=== PATIENT | male | born 1955 | race African-American/Black ===

== ENCOUNTER 2018-08-13 15:09 | Inpatient (IN) | payer OTHER ==
[2018-08-13 17:36] LABS: ADD MAN DIFF? NO
[2018-08-13 17:43] LABS: BASOPHILS % 0.5 % (0.0-2.0); EOSINOPHILS # 0.1 10^3/ul (0.0-0.5); EOSINOPHILS % 0.9 % (0.0-7.0); HEMATOCRIT 25.6 % (42.0-52.0); HEMOGLOBIN 7.8 g/dl (14.0-18.0); LYMPHOCYTES # 1.3 10^3/ul (0.8-2.9); LYMPHOCYTES % 15.8 % (15.0-51.0); MEAN CORPUSCULAR HEMOGLOBIN 25.2 pg (29.0-33.0); MEAN CORPUSCULAR HGB CONC 30.5 g/dl (32.0-37.0); MEAN CORPUSCULAR VOLUME 82.6 fl (82.0-101.0); MEAN PLATELET VOLUME 9.5 fl (7.4-10.4); MONOCYTE # 0.5 10^3/ul (0.3-0.9); MONOCYTES % 6.6 % (0.0-11.0); NEUTROPHIL # 6.1 10^3/ul (1.6-7.5); NEUTROPHILS % 75.8 % (39.0-77.0); PLATELET COUNT 384 10^3/UL (140-415); RED CELL DISTRIBUTION WIDTH 14.5 % (11.5-14.5)
[2018-08-13 18:00] LABS: ALANINE AMINOTRANSFERASE 9 IU/L (13-69); ALBUMIN 3.1 g/dl (3.3-4.9); ALBUMIN/GLOBULIN RATIO 0.81; ALKALINE PHOSPHATASE 109 IU/L (42-121); ANION GAP 5 (5-13); ASPARTATE AMINO TRANSFERASE 18 IU/L (15-46); BILIRUBIN,INDIRECT 0.1 mg/dl (0-1.1); BILIRUBIN,TOTAL 0.1 mg/dl (0.2-1.3); BLOOD UREA NITROGEN 17 mg/dl (7-20); CALCIUM 8.8 mg/dl (8.4-10.2); CARBON DIOXIDE 28 mmol/L (21-31); CHLORIDE 106 mmol/L (97-110); CREATININE 0.69 mg/dl (0.61-1.24); Estimated GFR > 60 mL/min (>60); GLUCOSE 246 mg/dl (70-220); POTASSIUM 4.1 mmol/L (3.5-5.1); SODIUM 139 mmol/L (135-144); TOTAL PROTEIN 6.9 g/dl (6.1-8.1)
[2018-08-13] MEDS: HYDROCODONE/APAP (10/325) TAB PO (18:30)
[2018-08-13] MEDS: PIPER-TAZO 3.375 GM IV (PMX) 100 ML IVPB (19:45)
[2018-08-13] MEDS ORDERED: ACETAMINOPHEN 325 MG TAB PO ×2 (20:00→22:00)
[2018-08-13] MEDS ORDERED: ONDANSETRON 4 MG INJ IV (20:00)
[2018-08-13] MEDS: VANCOMYCIN 1 GM (PMX) 250 ML IVPB (20:31)
[2018-08-13] MEDS ORDERED: ONDANSETRON 4 MG TAB PO (22:00)
[2018-08-13] MEDS ORDERED: DOCUSATE SODIUM 100 MG CAP PO (22:00)
[2018-08-13] MEDS ORDERED: VANCOMYCIN IV PER PHARMACY XX (22:00)
[2018-08-13] MEDS ORDERED: NACL 0.9% 3 ML SYG IV (22:00)
[2018-08-13] MEDS ORDERED: DEXTROSE 50% 50 ML SYRINGE IV ×2 (22:30)
[2018-08-13] MEDS ORDERED: GLUCAGON 1 MG INJ IM (22:30)
[2018-08-13] MEDS ORDERED: GLUCOSE GEL 15 GRAM TUBE BUCCAL (22:30)
[2018-08-13] MEDS ORDERED: GLUCOSE GEL 15 GRAM TUBE PO ×2 (22:30)
[2018-08-13] MEDS: FAMOTIDINE 20 MG TAB PO (22:59)
[2018-08-13] MEDS: SOD CHLORIDE 0.9% 1,000 ML IV (22:59)
[2018-08-13 23:29] LABS: CREATINE KINASE 102 IU/L (23-200)
[2018-08-13 23:40] LABS: CK INDEX 1.5; TROPONIN-I 0.016 ng/ml (0.000-0.120)
[2018-08-14] MEDS: VANCOMYCIN 500 MG (PMX) 100 ML IVPB (00:24)
[2018-08-14] MEDS: PIPER-TAZO 3.375 GM IV (PMX) 100 ML IVPB (02:24)
[2018-08-14 05:44] LABS: ADD MAN DIFF? NO
[2018-08-14 06:32] LABS: CREATINE KINASE 70 IU/L (23-200)
[2018-08-14 06:37] LABS: ADD UMIC YES; UR ASCORBIC ACID 40 mg/dL (NEGATIVE); UR BILIRUBIN (Dip) NEGATIVE (NEGATIVE); UR BLOOD (Dip) NEGATIVE (NEGATIVE); UR CLARITY CLOUDY (CLEAR); UR COLOR YELLOW (YELLOW); UR GLUCOSE (Dip) 3+ mg/dL (NEGATIVE); UR KETONES (Dip) NEGATIVE (NEGATIVE); UR LEUKOCYTE ESTERASE (Dip) NEGATIVE Leu/ul (NEGATIVE); UR NITRITE (Dip) NEGATIVE (NEGATIVE); UR RBC 6 /HPF (0-5); UR SPECIFIC GRAVITY (Dip) 1.026 (1.003-1.030); UR SQUAMOUS EPITHELIAL CELL FEW /HPF (FEW); UR TOTAL PROTEIN (Dip) 2+ mg/dl (NEGATIVE); UR UROBILINOGEN (Dip) NEGATIVE (NEGATIVE); UR WBC 4 /HPF (0-5)
[2018-08-14 06:46] LABS: CK INDEX 1.9; CK-MB 1.34 ng/ml (0.0-2.4)
[2018-08-14 06:47] LABS: ABNORMAL IP MESSAGE 1; BASOPHILS % 0.3 % (0.0-2.0); EOSINOPHILS # 0.1 10^3/ul (0.0-0.5); EOSINOPHILS % 1.5 % (0.0-7.0); HEMATOCRIT 22.6 % (42.0-52.0); LYMPHOCYTES # 1.3 10^3/ul (0.8-2.9); LYMPHOCYTES % 22.6 % (15.0-51.0); MEAN CORPUSCULAR HEMOGLOBIN 24.5 pg (29.0-33.0); MEAN CORPUSCULAR HGB CONC 29.2 g/dl (32.0-37.0); MONOCYTE # 0.6 10^3/ul (0.3-0.9); MONOCYTES % 9.3 % (0.0-11.0); NEUTROPHIL # 3.9 10^3/ul (1.6-7.5); PLATELET COUNT 328 10^3/UL (140-415); POSITIVE DIFF @See below; RED BLOOD COUNT 2.69 10^6/ul (4.70-6.10); RED CELL DISTRIBUTION WIDTH 14.5 % (11.5-14.5)
[2018-08-14 06:47] LABS: WHITE BLOOD COUNT 5.9 10^3/ul (4.8-10.8)
[2018-08-14 06:53] LABS: ALANINE AMINOTRANSFERASE 12 IU/L (13-69); ALBUMIN 2.5 g/dl (3.3-4.9); ALBUMIN/GLOBULIN RATIO 0.78; ALKALINE PHOSPHATASE 81 IU/L (42-121); ANION GAP 5 (5-13); ASPARTATE AMINO TRANSFERASE 11 IU/L (15-46); BILIRUBIN,INDIRECT 0.1 mg/dl (0-1.1); BILIRUBIN,TOTAL 0.1 mg/dl (0.2-1.3); BLOOD UREA NITROGEN 16 mg/dl (7-20); CALCIUM 8.4 mg/dl (8.4-10.2); CARBON DIOXIDE 27 mmol/L (21-31); CHLORIDE 108 mmol/L (97-110); Estimated GFR > 60 mL/min (>60); GLUCOSE 255 mg/dl (70-220); HEMOGLOBIN 6.6 g/dl (14.0-18.0); POTASSIUM 3.8 mmol/L (3.5-5.1); SODIUM 140 mmol/L (135-144); TOTAL PROTEIN 5.7 g/dl (6.1-8.1)
[2018-08-14 06:55] LABS: FREE THYROXINE INDEX (Calc) 2.57 ug/ml (0.65-3.89); T3 UPTAKE 49.5 % (23.5-40.5); T4 (THYROXINE) 5.2 ug/dl (5.5-11.0)
[2018-08-14 07:18] LABS: HEMOGLOBIN A1C 7.8 % (0-5.9)
[2018-08-14] MEDS: VANCOMYCIN 1 GM 250 ML IVPB (08:00)
[2018-08-14] MEDS: SOD CHLORIDE 0.9% 250 ML IV* (08:34)
[2018-08-14] MEDS: traMADol 50 MG TAB GTB ×2 (09:29→17:07)
[2018-08-14] MEDS: FAMOTIDINE 20 MG TAB PO ×2 (09:29→20:29)
[2018-08-14] MEDS: ENOXAPARIN 40 MG/0.4 ML SYG SC (09:31)
[2018-08-14] MEDS: SOD CHLORIDE 0.9% 1,000 ML IV ×2 (11:00→22:40)
[2018-08-14] MEDS: LIDOCAINE 1% (MPF) 5 ML VIAL SC (11:40)
[2018-08-14] MEDS: hydrALAzine 20 MG INJ IV (16:40)
[2018-08-14] MEDS: METOPROLOL 50 MG TAB PO ×2 (16:40→22:39)
[2018-08-14] MEDS: HYDROCODONE/APAP (5/325) TAB PO (19:00)
[2018-08-14] MEDS: FUROSEMIDE 20 MG INJ IV (19:00)
[2018-08-14] MEDS: INSULIN GLARGINE [LANTus] (100 UNITS/ML) SYG SC (20:00)
[2018-08-14] MEDS: ACETAMINOPHEN 500 MG TAB PO (20:29)
[2018-08-14] MEDS: DIPHENHYDRAMINE 50 MG INJ IV (20:31)
[2018-08-14 21:39] LABS: IMMEDIATE SPIN CROSSMATCH 1 4
[2018-08-15] MEDS: ACCU-CHEK XX (01:24)
[2018-08-15] MEDS: hydrALAzine 20 MG INJ IV ×2 (02:05→16:08)
[2018-08-15] MEDS: VANCOMYCIN 1 GM 250 ML IVPB ×2 (02:05→14:20)
[2018-08-15 06:13] LABS: ADD MAN DIFF? NO
[2018-08-15 06:30] LABS: WHITE BLOOD COUNT 6.6 10^3/ul (4.8-10.8)
[2018-08-15 06:30] LABS: BASOPHIL # 0.1 10^3/ul (0.0-0.1); BASOPHILS % 0.8 % (0.0-2.0); EOSINOPHILS # 0.2 10^3/ul (0.0-0.5); EOSINOPHILS % 2.9 % (0.0-7.0); HEMATOCRIT 27.8 % (42.0-52.0); HEMOGLOBIN 8.5 g/dl (14.0-18.0); LYMPHOCYTES # 1.6 10^3/ul (0.8-2.9); LYMPHOCYTES % 23.7 % (15.0-51.0); MEAN CORPUSCULAR HEMOGLOBIN 25.6 pg (29.0-33.0); MEAN CORPUSCULAR HGB CONC 30.6 g/dl (32.0-37.0); MEAN CORPUSCULAR VOLUME 83.7 fl (82.0-101.0); MEAN PLATELET VOLUME 10.2 fl (7.4-10.4); MONOCYTE # 0.5 10^3/ul (0.3-0.9); MONOCYTES % 7.8 % (0.0-11.0); NEUTROPHIL # 4.2 10^3/ul (1.6-7.5); NEUTROPHILS % 64.5 % (39.0-77.0); PLATELET COUNT 335 10^3/UL (140-415); RED BLOOD COUNT 3.32 10^6/ul (4.70-6.10); RED CELL DISTRIBUTION WIDTH 14.5 % (11.5-14.5)
[2018-08-15] MEDS: INSULIN ASPART [NOVOLOG] 3 ML PEN SC ×3 (07:57→17:43)
[2018-08-15] MEDS: FAMOTIDINE 20 MG TAB PO (08:47)
[2018-08-15] MEDS: LISINOPRIL 20 MG TAB PO (08:47)
[2018-08-15] MEDS: METOPROLOL 50 MG TAB PO (08:47)
[2018-08-15] MEDS: ENOXAPARIN 40 MG/0.4 ML SYG SC (08:50)
[2018-08-15] MEDS: SOD CHLORIDE 0.9% 1,000 ML IV (11:59)
[2018-08-15] MEDS: FUROSEMIDE 20 MG INJ IV (17:40)
== END 2018-08-15 19:16 | DRG 637 ==
LOC: PP2 08-14 05:00 → E/R 15:09 → 2NE 19:43
PROVIDERS: Pediatrics Neonatal-Perinatal Medicine
PROC: 02HV33Z Insertion of Infusion Device into Superior Vena Cava, Percutaneous Approach (ICD-10-PCS; principal; 2018-08-14)
PROC: B548ZZA Ultrasonography of Superior Vena Cava, Guidance (ICD-10-PCS; 2018-08-14)
PROC: 30233N1 Transfusion of Nonautologous Red Blood Cells into Peripheral Vein, Percutaneous Approach (ICD-10-PCS; 2018-08-14)
DX: E11.621 Type 2 diabetes mellitus with foot ulcer (principal); L89.313 Pressure ulcer of right buttock, stage 3; L03.116 Cellulitis of left lower limb; L03.115 Cellulitis of right lower limb; E11.51 Type 2 diabetes mellitus with diabetic peripheral angiopathy without gangrene; E11.65 Type 2 diabetes mellitus with hyperglycemia; L89.610 Pressure ulcer of right heel, unstageable; L89.620 Pressure ulcer of left heel, unstageable; I10 Essential (primary) hypertension; D64.9 Anemia, unspecified; I73.9 Peripheral vascular disease, unspecified; L97.529 Non-pressure chronic ulcer of other part of left foot with unspecified severity; L97.519 Non-pressure chronic ulcer of other part of right foot with unspecified severity; F17.210 Nicotine dependence, cigarettes, uncomplicated; Z79.4 Long term (current) use of insulin; Z59.0 Homelessness; Z91.14 Patient's other noncompliance with medication regimen
CPT/HCPCS: 36415; 36430; 36569; 71045; 76937; 80053; 81001; 82550; 82553; 82962; 83036; 84436; 84479; 84484; 85025; 86850; 86900; 86901; 86920; 87040; 99285-25

== ENCOUNTER 2018-11-08 19:03 | Inpatient (IN) | payer OTHER ==
[2018-11-08] MEDS: SODIUM CHLORIDE 0.9% 1L BAG IV* (20:58)
[2018-11-08] MEDS: HYDROCODONE/APAP (10/325) TAB PO (21:00)
[2018-11-08 21:23] LABS: ADD MAN DIFF? NO
[2018-11-08] MEDS: PIPER-TAZO 3.375 GM IV (PMX) 100 ML IVPB (21:23)
[2018-11-08 21:24] LABS: BASOPHIL # 0.1 10^3/ul (0.0-0.1); EOSINOPHILS # 0.1 10^3/ul (0.0-0.5); EOSINOPHILS % 1.4 % (0.0-7.0); HEMATOCRIT 27.5 % (42.0-52.0); HEMOGLOBIN 8.4 g/dl (14.0-18.0); LYMPHOCYTES # 1.5 10^3/ul (0.8-2.9); LYMPHOCYTES % 21.7 % (15.0-51.0); MEAN CORPUSCULAR HEMOGLOBIN 26.3 pg (29.0-33.0); MEAN CORPUSCULAR HGB CONC 30.5 g/dl (32.0-37.0); MEAN CORPUSCULAR VOLUME 86.2 fl (82.0-101.0); MEAN PLATELET VOLUME 9.8 fl (7.4-10.4); MONOCYTE # 0.4 10^3/ul (0.3-0.9); MONOCYTES % 5.8 % (0.0-11.0); NEUTROPHILS % 69.8 % (39.0-77.0); PLATELET COUNT 419 10^3/UL (140-415); RED BLOOD COUNT 3.19 10^6/ul (4.70-6.10); RED CELL DISTRIBUTION WIDTH 14.8 % (11.5-14.5)
[2018-11-08 21:24] LABS: WHITE BLOOD COUNT 7.1 10^3/ul (4.8-10.8)
[2018-11-08 21:45] LABS: ALANINE AMINOTRANSFERASE 14 IU/L (13-69); ALBUMIN 3.4 g/dl (3.3-4.9); ALKALINE PHOSPHATASE 112 IU/L (42-121); ANION GAP 6 (5-13); ASPARTATE AMINO TRANSFERASE 15 IU/L (15-46); BILIRUBIN,INDIRECT 0.4 mg/dl (0-1.1); BILIRUBIN,TOTAL 0.4 mg/dl (0.2-1.3); BLOOD UREA NITROGEN 23 mg/dl (7-20); CALCIUM 8.9 mg/dl (8.4-10.2); CARBON DIOXIDE 28 mmol/L (21-31); CHLORIDE 105 mmol/L (97-110); CREATININE 1.09 mg/dl (0.61-1.24); Estimated GFR > 60 mL/min (>60); GLUCOSE 241 mg/dl (70-220); POTASSIUM 4.3 mmol/L (3.5-5.1); PROTIME 16.3 Sec (11.9-14.9); PT RATIO 1.3; SODIUM 139 mmol/L (135-144); TOTAL PROTEIN 6.8 g/dl (6.1-8.1)
[2018-11-08 21:46] LABS: PARTIAL THROMBOPLASTIN TIME 31.7 Sec (23.0-35.0)
[2018-11-08] MEDS: VANCOMYCIN 1 GM (PMX) 250 ML IVPB (22:24)
[2018-11-08] MEDS ORDERED: ACETAMINOPHEN 325 MG TAB PO (23:00)
[2018-11-08] MEDS ORDERED: ONDANSETRON 4 MG INJ IV (23:00)
[2018-11-09] MEDS ORDERED: ACETAMINOPHEN 325 MG TAB PO (00:30)
[2018-11-09] MEDS ORDERED: ONDANSETRON 4 MG INJ IV (00:30)
[2018-11-09] MEDS ORDERED: NACL 0.9% 3 ML SYG IV (00:30)
[2018-11-09] MEDS ORDERED: COLLAGENASE 5 GM (UD JAR) TOP ×2 (00:51→06:30)
[2018-11-09] MEDS: morphine 2 MG INJ IV (01:25)
[2018-11-09] MEDS ORDERED: GLUCOSE GEL 15 GRAM TUBE PO ×2 (01:30)
[2018-11-09] MEDS ORDERED: GLUCOSE GEL 15 GRAM TUBE BUCCAL (01:30)
[2018-11-09] MEDS ORDERED: GLUCAGON 1 MG INJ IM (01:30)
[2018-11-09] MEDS ORDERED: DEXTROSE 50% 50 ML SYRINGE IV ×2 (01:30)
[2018-11-09 01:36] LABS: LACTIC ACID 1.1 mmol/L (0.5-2.0)
[2018-11-09] MEDS: ACCU-CHEK XX (02:00)
[2018-11-09] MEDS: hydrALAzine 20 MG INJ IV (02:38)
[2018-11-09] MEDS ORDERED: PENDING SANTYL ORDER FOR WOUND CARE XX (06:00)
[2018-11-09] MEDS: HYDROCODONE/APAP (10/325) TAB PO ×4 (06:13→23:52)
[2018-11-09] MEDS ORDERED: VANCOMYCIN IV PER PHARMACY XX (08:00)
[2018-11-09] MEDS: COLLAGENASE 5 GM (UD JAR) TOP (08:22)
[2018-11-09] MEDS: LISINOPRIL 20 MG TAB PO ×2 (08:23→12:44)
[2018-11-09] MEDS: METOPROLOL 50 MG TAB PO ×2 (08:23→20:11)
[2018-11-09] MEDS: INSULIN ASPART [NOVOLOG] 3 ML PEN SC ×5 (08:24→20:06)
[2018-11-09] MEDS: FAMOTIDINE 20 MG TAB PO ×2 (08:24→20:05)
[2018-11-09] MEDS: VANCOMYCIN 750 MG (PMX) 250 ML IVPB ×2 (08:24→20:05)
[2018-11-09 11:05] LABS: ADD MAN DIFF? NO
[2018-11-09 11:10] LABS: WHITE BLOOD COUNT 5.2 10^3/ul (4.8-10.8)
[2018-11-09 11:10] LABS: BASOPHIL # 0.1 10^3/ul (0.0-0.1); EOSINOPHILS # 0.1 10^3/ul (0.0-0.5); EOSINOPHILS % 2.3 % (0.0-7.0); HEMATOCRIT 25.2 % (42.0-52.0); HEMOGLOBIN 7.6 g/dl (14.0-18.0); LYMPHOCYTES # 1.1 10^3/ul (0.8-2.9); LYMPHOCYTES % 21.5 % (15.0-51.0); MEAN CORPUSCULAR HGB CONC 30.2 g/dl (32.0-37.0); MEAN CORPUSCULAR VOLUME 86.3 fl (82.0-101.0); MEAN PLATELET VOLUME 10.7 fl (7.4-10.4); MONOCYTE # 0.3 10^3/ul (0.3-0.9); MONOCYTES % 6.4 % (0.0-11.0); NEUTROPHIL # 3.5 10^3/ul (1.6-7.5); NEUTROPHILS % 68.6 % (39.0-77.0); PLATELET COUNT 337 10^3/UL (140-415); RED BLOOD COUNT 2.92 10^6/ul (4.70-6.10); RED CELL DISTRIBUTION WIDTH 15.1 % (11.5-14.5)
[2018-11-09] MEDS: PIPER-TAZO 3.375 GM IV (PMX) 100 ML IVPB ×4 (11:15→23:49)
[2018-11-09] MEDS: HEPARIN 5,000 UNIT/1 ML VIAL SC ×2 (11:16→20:14)
[2018-11-09 11:18] LABS: HEMOGLOBIN A1C 7.1 % (0-5.9)
[2018-11-09 11:31] LABS: ALANINE AMINOTRANSFERASE 12 IU/L (13-69); ALBUMIN 2.7 g/dl (3.3-4.9); ALBUMIN/GLOBULIN RATIO 0.81; ALKALINE PHOSPHATASE 103 IU/L (42-121); ANION GAP 4 (5-13); ASPARTATE AMINO TRANSFERASE 13 IU/L (15-46); BILIRUBIN,INDIRECT 0.3 mg/dl (0-1.1); BILIRUBIN,TOTAL 0.3 mg/dl (0.2-1.3); BLOOD UREA NITROGEN 23 mg/dl (7-20); CALCIUM 8.2 mg/dl (8.4-10.2); CARBON DIOXIDE 26 mmol/L (21-31); CHLORIDE 110 mmol/L (97-110); CHOL/HDL RATIO 3.1 RATIO; CHOLESTEROL 109 mg/dl (100-200); CREATININE 0.96 mg/dl (0.61-1.24); Estimated GFR > 60 mL/min (>60); GLUCOSE 216 mg/dl (70-220); HDL CHOLESTEROL 35 mg/dl (30-78); LDL CHOLESTEROL,CALCULATED 65 mg/dl; MAGNESIUM 1.8 mg/dl (1.7-2.5); POTASSIUM 4.7 mmol/L (3.5-5.1); SODIUM 140 mmol/L (135-144); TRIGLYCERIDES 47 mg/dl (0-149)
[2018-11-09 11:43] LABS: IRON 29 ug/dl (35-150)
[2018-11-09 11:47] LABS: C-REACTIVE PROTEIN 1.1 mg/dl (0.0-0.9)
[2018-11-09 11:52] LABS: % IRON SATURATION 13 % SAT (22-52); TOTAL IRON BINDING CAPACITY 221 ug/dl (241-421)
[2018-11-09 12:25] LABS: ERYTHROCYTE SEDIMENTATION RATE 68 mm/Hr (0-20)
[2018-11-09] MEDS: DAKINS 0.0125%(1/40) 473 ML SOLUTION TP (14:00)
[2018-11-09] MEDS: SOD FERRIC GLUC COMPLX 125 MG in SOD CHLORIDE 0.9% 100 ML IVPB (14:15)
[2018-11-09] MEDS: INSULIN GLARGINE [LANTus] (100 UNITS/ML) SYG SC (15:00)
[2018-11-09 15:39] LABS: PROCALCITONIN 0.45 ng/mL (0.00-0.10)
[2018-11-10] MEDS: ACCU-CHEK XX (02:00)
[2018-11-10] MEDS: hydrALAzine 20 MG INJ IV (04:29)
[2018-11-10] MEDS: HYDROCODONE/APAP (10/325) TAB PO ×3 (06:28→17:33)
[2018-11-10] MEDS: PIPER-TAZO 3.375 GM IV (PMX) 100 ML IVPB ×4 (06:29→17:40)
[2018-11-10 07:37] LABS: ADD MAN DIFF? NO
[2018-11-10 07:40] LABS: EOSINOPHILS # 0.2 10^3/ul (0.0-0.5); HEMOGLOBIN 7.9 g/dl (14.0-18.0); LYMPHOCYTES # 0.9 10^3/ul (0.8-2.9); LYMPHOCYTES % 21.2 % (15.0-51.0); MEAN CORPUSCULAR HEMOGLOBIN 25.9 pg (29.0-33.0); MEAN CORPUSCULAR HGB CONC 30.4 g/dl (32.0-37.0); MEAN CORPUSCULAR VOLUME 85.2 fl (82.0-101.0); MEAN PLATELET VOLUME 9.8 fl (7.4-10.4); MONOCYTE # 0.3 10^3/ul (0.3-0.9); MONOCYTES % 7.5 % (0.0-11.0); NEUTROPHIL # 2.7 10^3/ul (1.6-7.5); NEUTROPHILS % 66.1 % (39.0-77.0); PLATELET COUNT 339 10^3/UL (140-415); RED BLOOD COUNT 3.05 10^6/ul (4.70-6.10); RED CELL DISTRIBUTION WIDTH 15.1 % (11.5-14.5)
[2018-11-10 08:00] LABS: ALANINE AMINOTRANSFERASE 12 IU/L (13-69); ALBUMIN 2.8 g/dl (3.3-4.9); ALKALINE PHOSPHATASE 91 IU/L (42-121); ANION GAP 5 (5-13); ASPARTATE AMINO TRANSFERASE 14 IU/L (15-46); BILIRUBIN,INDIRECT 0.4 mg/dl (0-1.1); BILIRUBIN,TOTAL 0.4 mg/dl (0.2-1.3); BLOOD UREA NITROGEN 22 mg/dl (7-20); CALCIUM 8.6 mg/dl (8.4-10.2); CARBON DIOXIDE 24 mmol/L (21-31); CHLORIDE 109 mmol/L (97-110); CREATININE 0.97 mg/dl (0.61-1.24); Estimated GFR > 60 mL/min (>60); GLUCOSE 94 mg/dl (70-220); POTASSIUM 4.1 mmol/L (3.5-5.1); SODIUM 138 mmol/L (135-144); TOTAL PROTEIN 5.9 g/dl (6.1-8.1)
[2018-11-10] MEDS: INSULIN ASPART [NOVOLOG] 3 ML PEN SC ×7 (08:00→21:00)
[2018-11-10] MEDS: morphine 2 MG INJ IV (08:04)
[2018-11-10] MEDS: METOPROLOL 50 MG TAB PO ×2 (08:06→22:22)
[2018-11-10] MEDS: FAMOTIDINE 20 MG TAB PO ×2 (08:06→22:23)
[2018-11-10 08:07] LABS: VANCOMYCIN,TROUGH 17.2 ug/ml (10.0-20.0)
[2018-11-10] MEDS: LISINOPRIL 20 MG TAB PO (08:07)
[2018-11-10] MEDS: HEPARIN 5,000 UNIT/1 ML VIAL SC ×2 (08:10→21:00)
[2018-11-10] MEDS: INSULIN GLARGINE [LANTus] (100 UNITS/ML) SYG SC (08:10)
[2018-11-10] MEDS: COLLAGENASE 5 GM (UD JAR) TOP (08:13)
[2018-11-10] MEDS: DAKINS 0.0125%(1/40) 473 ML SOLUTION TP (08:14)
[2018-11-10] MEDS: VANCOMYCIN 750 MG (PMX) 250 ML IVPB (08:56)
[2018-11-10] MEDS: SOD FERRIC GLUC COMPLX 125 MG in SOD CHLORIDE 0.9% 100 ML IVPB (12:17)
[2018-11-10] MEDS: metFORMIN 500 MG TAB PO (17:33)
[2018-11-10] MEDS: VANCOMYCIN 500 MG (PMX) 100 ML IVPB (22:19)
[2018-11-10] MEDS: GABAPENTIN 100 MG CAP PO (22:22)
[2018-11-11] MEDS: PIPER-TAZO 3.375 GM IV (PMX) 100 ML IVPB ×4 (00:49→17:38)
[2018-11-11] MEDS: ACCU-CHEK XX (02:00)
[2018-11-11] MEDS: HYDROCODONE/APAP (10/325) TAB PO ×4 (06:00→17:38)
[2018-11-11] MEDS: INSULIN ASPART [NOVOLOG] 3 ML PEN SC ×4 (08:00→21:00)
[2018-11-11] MEDS: INSULIN GLARGINE [LANTus] (100 UNITS/ML) SYG SC (08:00)
[2018-11-11] MEDS: metFORMIN 500 MG TAB PO ×3 (08:46→21:27)
[2018-11-11] MEDS: HEPARIN 5,000 UNIT/1 ML VIAL SC ×3 (08:47→21:30)
[2018-11-11] MEDS: LISINOPRIL 20 MG TAB PO (08:47)
[2018-11-11] MEDS: COLLAGENASE 5 GM (UD JAR) TOP (08:48)
[2018-11-11] MEDS: DAKINS 0.0125%(1/40) 473 ML SOLUTION TP (08:48)
[2018-11-11] MEDS: GABAPENTIN 100 MG CAP PO ×3 (08:48→21:27)
[2018-11-11] MEDS: FAMOTIDINE 20 MG TAB PO ×2 (08:48→21:27)
[2018-11-11] MEDS: METOPROLOL 50 MG TAB PO (08:48)
[2018-11-11] MEDS: VANCOMYCIN 500 MG (PMX) 100 ML IVPB ×2 (10:01→21:26)
[2018-11-11 10:20] LABS: ADD MAN DIFF? NO
[2018-11-11 10:27] LABS: BASOPHILS % 0.6 % (0.0-2.0); EOSINOPHILS # 0.1 10^3/ul (0.0-0.5); EOSINOPHILS % 2.2 % (0.0-7.0); HEMATOCRIT 28.3 % (42.0-52.0); HEMOGLOBIN 8.8 g/dl (14.0-18.0); LYMPHOCYTES % 19.2 % (15.0-51.0); MEAN CORPUSCULAR HEMOGLOBIN 26.6 pg (29.0-33.0); MEAN CORPUSCULAR HGB CONC 31.1 g/dl (32.0-37.0); MEAN CORPUSCULAR VOLUME 85.5 fl (82.0-101.0); MEAN PLATELET VOLUME 11.9 fl (7.4-10.4); MONOCYTE # 0.3 10^3/ul (0.3-0.9); MONOCYTES % 6.2 % (0.0-11.0); NEUTROPHIL # 3.6 10^3/ul (1.6-7.5); NEUTROPHILS % 71.4 % (39.0-77.0); PLATELET COUNT 354 10^3/UL (140-415); RED BLOOD COUNT 3.31 10^6/ul (4.70-6.10); RED CELL DISTRIBUTION WIDTH 15.5 % (11.5-14.5)
[2018-11-11] MEDS: hydrALAzine 20 MG INJ IV (10:33)
[2018-11-11] MEDS: METOPROLOL 25 MG TAB PO ×2 (10:45→21:29)
[2018-11-11 10:54] LABS: ALBUMIN 3.8 g/dl (3.3-4.9); ALKALINE PHOSPHATASE 94 IU/L (42-121); ANION GAP 4 (5-13); ASPARTATE AMINO TRANSFERASE 54 IU/L (15-46); BILIRUBIN,INDIRECT 0.6 mg/dl (0-1.1); BILIRUBIN,TOTAL 0.6 mg/dl (0.2-1.3); BLOOD UREA NITROGEN 22 mg/dl (7-20); CALCIUM 8.6 mg/dl (8.4-10.2); CARBON DIOXIDE 24 mmol/L (21-31); CHLORIDE 110 mmol/L (97-110); CREATININE 0.84 mg/dl (0.61-1.24); Estimated GFR > 60 mL/min (>60); GLUCOSE 161 mg/dl (70-220); SODIUM 138 mmol/L (135-144)
[2018-11-11 11:01] LABS: ALANINE AMINOTRANSFERASE < 6 IU/L (13-69)
[2018-11-11 11:05] LABS: POTASSIUM 6.9 mmol/L (3.5-5.1)
[2018-11-11 12:15] LABS: ANION GAP 8 (5-13); BLOOD UREA NITROGEN 21 mg/dl (7-20); CALCIUM 8.7 mg/dl (8.4-10.2); CARBON DIOXIDE 24 mmol/L (21-31); CHLORIDE 109 mmol/L (97-110); Estimated GFR > 60 mL/min (>60); GLUCOSE 144 mg/dl (70-220); POTASSIUM 4.1 mmol/L (3.5-5.1); SODIUM 141 mmol/L (135-144)
[2018-11-11] MEDS: SOD FERRIC GLUC COMPLX 125 MG in SOD CHLORIDE 0.9% 100 ML IVPB (12:54)
[2018-11-11] MEDS: BALSAM PERU/CASTOR OIL 60 GM TUBE TOP ×2 (17:38→21:31)
[2018-11-12] MEDS: PIPER-TAZO 3.375 GM IV (PMX) 100 ML IVPB ×3 (00:27→13:10)
[2018-11-12] MEDS: HYDROCODONE/APAP (10/325) TAB PO ×5 (00:27→23:51)
[2018-11-12] MEDS: ACCU-CHEK XX (02:00)
[2018-11-12] MEDS: INSULIN ASPART [NOVOLOG] 3 ML PEN SC ×4 (08:00→21:00)
[2018-11-12] MEDS: metFORMIN 500 MG TAB PO ×2 (08:08→17:36)
[2018-11-12] MEDS: FAMOTIDINE 20 MG TAB PO ×2 (08:09→22:00)
[2018-11-12] MEDS: METOPROLOL 25 MG TAB PO ×2 (08:09→22:00)
[2018-11-12] MEDS: GABAPENTIN 100 MG CAP PO ×3 (08:09→21:59)
[2018-11-12] MEDS: LISINOPRIL 20 MG TAB PO (08:10)
[2018-11-12] MEDS: COLLAGENASE 5 GM (UD JAR) TOP (08:10)
[2018-11-12] MEDS: BALSAM PERU/CASTOR OIL 60 GM TUBE TOP ×2 (08:10→22:01)
[2018-11-12] MEDS: DAKINS 0.0125%(1/40) 473 ML SOLUTION TP (08:11)
[2018-11-12] MEDS: HEPARIN 5,000 UNIT/1 ML VIAL SC ×2 (08:16→21:00)
[2018-11-12 08:39] LABS: ADD MAN DIFF? NO
[2018-11-12 08:41] LABS: EOSINOPHILS # 0.1 10^3/ul (0.0-0.5); EOSINOPHILS % 2.9 % (0.0-7.0); HEMATOCRIT 28.3 % (42.0-52.0); HEMOGLOBIN 8.5 g/dl (14.0-18.0); LYMPHOCYTES # 1.1 10^3/ul (0.8-2.9); LYMPHOCYTES % 25.4 % (15.0-51.0); MEAN CORPUSCULAR HEMOGLOBIN 26.2 pg (29.0-33.0); MEAN CORPUSCULAR VOLUME 87.1 fl (82.0-101.0); MEAN PLATELET VOLUME 10.2 fl (7.4-10.4); MONOCYTE # 0.3 10^3/ul (0.3-0.9); MONOCYTES % 6.8 % (0.0-11.0); NEUTROPHIL # 2.6 10^3/ul (1.6-7.5); NEUTROPHILS % 63.7 % (39.0-77.0); PLATELET COUNT 383 10^3/UL (140-415); RED BLOOD COUNT 3.25 10^6/ul (4.70-6.10); RED CELL DISTRIBUTION WIDTH 15.2 % (11.5-14.5)
[2018-11-12 08:41] LABS: WHITE BLOOD COUNT 4.1 10^3/ul (4.8-10.8)
[2018-11-12 09:04] LABS: ALANINE AMINOTRANSFERASE 10 IU/L (13-69); ALBUMIN 3.1 g/dl (3.3-4.9); ALBUMIN/GLOBULIN RATIO 0.93; ALKALINE PHOSPHATASE 88 IU/L (42-121); ANION GAP 7 (5-13); ASPARTATE AMINO TRANSFERASE 14 IU/L (15-46); BILIRUBIN,INDIRECT 0.3 mg/dl (0-1.1); BILIRUBIN,TOTAL 0.3 mg/dl (0.2-1.3); BLOOD UREA NITROGEN 21 mg/dl (7-20); CALCIUM 8.8 mg/dl (8.4-10.2); CARBON DIOXIDE 25 mmol/L (21-31); CHLORIDE 110 mmol/L (97-110); CREATININE 1.11 mg/dl (0.61-1.24); Estimated GFR > 60 mL/min (>60); GLUCOSE 120 mg/dl (70-220); POTASSIUM 4.2 mmol/L (3.5-5.1); SODIUM 142 mmol/L (135-144); TOTAL PROTEIN 6.4 g/dl (6.1-8.1)
[2018-11-12 09:46] LABS: VANCOMYCIN,TROUGH 18.3 ug/ml (10.0-20.0)
[2018-11-12] MEDS: VANCOMYCIN 500 MG (PMX) 100 ML IVPB (12:12)
[2018-11-12] MEDS: hydrALAzine 20 MG INJ IV (14:52)
[2018-11-12] MEDS: CEFTRIAXONE 2 GM/50 ML (PMX) 50 ML IVPB (17:37)
[2018-11-13] MEDS: ACCU-CHEK XX (02:00)
[2018-11-13] MEDS: HYDROCODONE/APAP (10/325) TAB PO ×3 (06:00→17:29)
[2018-11-13] MEDS: INSULIN ASPART [NOVOLOG] 3 ML PEN SC ×4 (08:00→20:09)
[2018-11-13] MEDS: HEPARIN 5,000 UNIT/1 ML VIAL SC ×2 (08:08→20:06)
[2018-11-13] MEDS: metFORMIN 500 MG TAB PO ×2 (08:08→17:30)
[2018-11-13] MEDS: DAKINS 0.0125%(1/40) 473 ML SOLUTION TP (08:09)
[2018-11-13] MEDS: BALSAM PERU/CASTOR OIL 60 GM TUBE TOP ×2 (08:09→21:00)
[2018-11-13] MEDS: GABAPENTIN 100 MG CAP PO ×3 (08:09→20:03)
[2018-11-13] MEDS: FAMOTIDINE 20 MG TAB PO ×2 (08:09→20:03)
[2018-11-13] MEDS: COLLAGENASE 5 GM (UD JAR) TOP (08:09)
[2018-11-13] MEDS: LISINOPRIL 20 MG TAB PO (08:10)
[2018-11-13] MEDS: METOPROLOL 25 MG TAB PO ×2 (08:10→20:03)
[2018-11-13] MEDS: VANCOMYCIN 750 MG (PMX) 250 ML IVPB (10:46)
[2018-11-13] MEDS: ZINC SULFATE 220 MG CAP PO (12:53)
[2018-11-13] MEDS: ASCORBIC ACID 500 MG TAB PO (12:54)
[2018-11-13] MEDS: LIDOCAINE 1% (MPF) 5 ML VIAL SC (14:00)
[2018-11-13] MEDS: CEFTRIAXONE 2 GM/50 ML (PMX) 50 ML IVPB (17:29)
[2018-11-13] MEDS: hydrALAzine 20 MG INJ IV (22:00)
[2018-11-14] MEDS: ACCU-CHEK XX (02:00)
[2018-11-14] MEDS: HYDROCODONE/APAP (10/325) TAB PO ×4 (06:00→17:10)
[2018-11-14] MEDS: hydrALAzine 20 MG INJ IV ×2 (06:48→17:12)
[2018-11-14] MEDS: INSULIN ASPART [NOVOLOG] 3 ML PEN SC ×4 (07:53→21:00)
[2018-11-14] MEDS: SENNA TAB PO ×2 (08:52→21:00)
[2018-11-14] MEDS: FAMOTIDINE 20 MG TAB PO ×2 (08:52→21:27)
[2018-11-14] MEDS: ZINC SULFATE 220 MG CAP PO (08:52)
[2018-11-14] MEDS: GABAPENTIN 100 MG CAP PO ×3 (08:52→21:27)
[2018-11-14] MEDS: ASCORBIC ACID 500 MG TAB PO (08:52)
[2018-11-14] MEDS: MULTIVITAMINS THERAPEUTIC TAB PO (08:52)
[2018-11-14] MEDS: metFORMIN 500 MG TAB PO ×2 (08:52→17:10)
[2018-11-14] MEDS: BALSAM PERU/CASTOR OIL 60 GM TUBE TOP ×2 (08:53→21:33)
[2018-11-14] MEDS: METOPROLOL 25 MG TAB PO ×2 (08:53→21:29)
[2018-11-14] MEDS: COLLAGENASE 5 GM (UD JAR) TOP (08:53)
[2018-11-14] MEDS: DAKINS 0.0125%(1/40) 473 ML SOLUTION TP (08:54)
[2018-11-14] MEDS: HEPARIN 5,000 UNIT/1 ML VIAL SC ×2 (08:56→21:00)
[2018-11-14] MEDS: VANCOMYCIN 750 MG (PMX) 250 ML IVPB (10:25)
[2018-11-14] MEDS: LISINOPRIL 20 MG TAB PO (10:26)
[2018-11-14] MEDS: AMLODIPINE 5 MG TAB PO (12:14)
[2018-11-14] MEDS: CEFTRIAXONE 2 GM/50 ML (PMX) 50 ML IVPB (17:03)
[2018-11-15] MEDS: HYDROCODONE/APAP (10/325) TAB PO ×4 (00:13→17:17)
[2018-11-15] MEDS: ACCU-CHEK XX (02:00)
[2018-11-15 07:18] LABS: BLOOD UREA NITROGEN 25 mg/dl (7-20)
[2018-11-15 07:18] LABS: CREATININE 0.95 mg/dl (0.61-1.24)
[2018-11-15 07:26] LABS: ANION GAP 6 (5-13); BLOOD UREA NITROGEN 25 mg/dl (7-20); CALCIUM 8.8 mg/dl (8.4-10.2); CARBON DIOXIDE 24 mmol/L (21-31); CHLORIDE 109 mmol/L (97-110); CREATININE 0.86 mg/dl (0.61-1.24); Estimated GFR > 60 mL/min (>60); GLUCOSE 93 mg/dl (70-220); POTASSIUM 4.3 mmol/L (3.5-5.1); SODIUM 139 mmol/L (135-144)
[2018-11-15] MEDS: INSULIN ASPART [NOVOLOG] 3 ML PEN SC ×3 (08:00→17:17)
[2018-11-15] MEDS: ZINC SULFATE 220 MG CAP PO (08:00)
[2018-11-15] MEDS: MULTIVITAMINS THERAPEUTIC TAB PO (08:00)
[2018-11-15] MEDS: metFORMIN 500 MG TAB PO ×2 (08:00→17:17)
[2018-11-15] MEDS: GABAPENTIN 100 MG CAP PO ×2 (08:00→12:31)
[2018-11-15] MEDS: FAMOTIDINE 20 MG TAB PO (08:00)
[2018-11-15] MEDS: ASCORBIC ACID 500 MG TAB PO (08:01)
[2018-11-15] MEDS: SENNA TAB PO (08:01)
[2018-11-15] MEDS: METOPROLOL 25 MG TAB PO (08:01)
[2018-11-15] MEDS: LISINOPRIL 20 MG TAB PO (08:02)
[2018-11-15] MEDS: AMLODIPINE 5 MG TAB PO ×2 (08:02→09:20)
[2018-11-15] MEDS: HEPARIN 5,000 UNIT/1 ML VIAL SC (08:02)
[2018-11-15] MEDS: DAKINS 0.0125%(1/40) 473 ML SOLUTION TP (08:03)
[2018-11-15] MEDS: BALSAM PERU/CASTOR OIL 60 GM TUBE TOP (08:03)
[2018-11-15] MEDS: COLLAGENASE 5 GM (UD JAR) TOP (08:07)
[2018-11-15] MEDS: VANCOMYCIN 750 MG (PMX) 250 ML IVPB (09:20)
[2018-11-15] MEDS: CEFTRIAXONE 2 GM/50 ML (PMX) 50 ML IVPB (15:59)
[2018-11-16] MEDS ORDERED: AMLODIPINE 10 MG TAB PO (09:00)
== END 2018-11-15 18:46 | disposition home health service (06) | DRG 623 ==
LOC: PP2 22:34 → E/R 19:03
PROC: 0JBR0ZZ Excision of Left Foot Subcutaneous Tissue and Fascia, Open Approach (ICD-10-PCS; principal; 2018-11-09)
PROC: 0JBQ0ZZ Excision of Right Foot Subcutaneous Tissue and Fascia, Open Approach (ICD-10-PCS; 2018-11-09)
PROC: 0HBRXZZ Excision of Toe Nail, External Approach (ICD-10-PCS; 2018-11-09)
PROC: 0HBRXZZ Excision of Toe Nail, External Approach (ICD-10-PCS; 2018-11-09)
PROC: 0HBRXZZ Excision of Toe Nail, External Approach (ICD-10-PCS; 2018-11-09)
PROC: 0HBRXZZ Excision of Toe Nail, External Approach (ICD-10-PCS; 2018-11-09)
PROC: 0HBRXZZ Excision of Toe Nail, External Approach (ICD-10-PCS; 2018-11-09)
PROC: 0HBRXZZ Excision of Toe Nail, External Approach (ICD-10-PCS; 2018-11-09)
PROC: 0HBRXZZ Excision of Toe Nail, External Approach (ICD-10-PCS; 2018-11-09)
PROC: 0HBRXZZ Excision of Toe Nail, External Approach (ICD-10-PCS; 2018-11-09)
PROC: 0HBRXZZ Excision of Toe Nail, External Approach (ICD-10-PCS; 2018-11-09)
PROC: 0HBRXZZ Excision of Toe Nail, External Approach (ICD-10-PCS; 2018-11-09)
PROC: 02HV33Z Insertion of Infusion Device into Superior Vena Cava, Percutaneous Approach (ICD-10-PCS; 2018-11-13)
DX: E11.621 Type 2 diabetes mellitus with foot ulcer (principal); M86.9 Osteomyelitis, unspecified; L97.529 Non-pressure chronic ulcer of other part of left foot with unspecified severity; E11.65 Type 2 diabetes mellitus with hyperglycemia; L97.519 Non-pressure chronic ulcer of other part of right foot with unspecified severity; E11.69 Type 2 diabetes mellitus with other specified complication; I10 Essential (primary) hypertension; R53.81 Other malaise; B35.1 Tinea unguium; L89.159 Pressure ulcer of sacral region, unspecified stage; E11.42 Type 2 diabetes mellitus with diabetic polyneuropathy; B35.3 Tinea pedis; R32 Unspecified urinary incontinence; D50.9 Iron deficiency anemia, unspecified; R15.9 Full incontinence of feces; F17.200 Nicotine dependence, unspecified, uncomplicated; Z99.3 Dependence on wheelchair; Z79.84 Long term (current) use of oral hypoglycemic drugs; Z59.0 Homelessness
CPT/HCPCS: 36415; 36569; 71045; 73610; 73610-RT; 73630; 73630-LT; 73718; 76937; 80048; 80053; 80061; 80202; 82306; 82565; 82728; 82962; 83036; 83540; 83605; 83735; 84145; 84443; 84520; 85025; 85610; 85651; 85730; 86140; 87040-91; 87070; 93923; 93970; 96374; 96375; 97162; 99285-25; G0378

== ENCOUNTER 2018-11-23 09:06 | Emergency (ER) | payer OTHER ==
[2018-11-23] MEDS: BACITRACIN 0.9 GM OINT TOP (10:51)
== END 2018-11-23 09:45 | disposition home or self-care (01) ==
LOC: E/R 09:45
DX: S91.302A Unspecified open wound, left foot, initial encounter (principal); M86.9 Osteomyelitis, unspecified; M79.672 Pain in left foot; I10 Essential (primary) hypertension; E11.9 Type 2 diabetes mellitus without complications; F17.210 Nicotine dependence, cigarettes, uncomplicated; S91.301A Unspecified open wound, right foot, initial encounter; X58.XXXA Exposure to other specified factors, initial encounter; Y92.9 Unspecified place or not applicable; Z79.84 Long term (current) use of oral hypoglycemic drugs
CPT/HCPCS: 99282; Z7502